=== PATIENT | female | born 1940 | race Caucasian/White ===

== ENCOUNTER 2017-10-19 19:00 | Emergency (ER) | payer OTHER ==
[~2017-10-19] VITALS: Ht 157.5 cm; Wt 82.5 kg
[~2017-10-19 19:00] MED LIST: ASPI81EC PO; CETYLOZ PO; CYAN100 PO; FLUT.05NI; HYDACE5 PO; IBUP600 PO; LORA10ER PO; SERT25 PO; SIMV5 PO
[2017-10-19 19:38] LABS: BASOPHILS ABSOLUTE AUTO 0.05 K/mm3 (0.00-0.23); BASOPHILS PERCENT AUTO 1 % (0-2); EOSINOPHILS ABSOLUTE AUTO 0.17 K/mm3 (0.00-0.68); EOSINOPHILS PERCENT AUTO 3 % (0-6); Hematocrit 40.2 % (33.0-51.0); Hemoglobin 13.1 g/dL (11.5-16.0); IMMATURE GRAN ABSOLUTE AUTO 0.02 K/mm3 (0.00-0.10); IMMATURE GRAN PERCENT AUTO 0 % (0-1); LYMPHOCYTES ABSOLUTE AUTO 1.55 K/mm3 (0.84-5.20); LYMPHOCYTES PERCENT AUTO 28 % (21-46); MONOCYTES ABSOLUTE AUTO 0.41 K/mm3 (0.16-1.47); MONOCYTES PERCENT AUTO 7 % (4-13); Mean Corpuscular HGB 29.7 pg (26.0-34.0); Mean Corpuscular HGB Conc 32.6 g/dL (31.5-36.5); Mean Corpuscular Volume 91 fL (80-100); Mean Platelet Volume 9.5 fL (9.1-12.4); NEUTROPHILS ABSOLUTE AUTO 3.32 K/mm3 (1.96-9.15); NEUTROPHILS PERCENT AUTO 60 % (41-73); Platelet Count 256 K/mm3 (150-400); RDW Coefficient Variation 12.4 % (11.7-14.2); RDW Standard Deviation 41.4 fL (35.1-46.3); Red Blood Cell Count 4.41 M/mm3 (3.80-5.20); White Blood Cell Count 5.52 K/mm3 (4.00-11.30)
[2017-10-19 19:58] LABS: Albumin, Blood 3.8 g/dL (3.4-5.0); Bilirubin, Total 0.3 mg/dL (0.1-1.0); Bun/Creatinine Ratio 11.3 (12.0-20.0); Calcium, Blood 9.5 mg/dL (8.5-10.1); Creatinine, Blood 0.98 mg/dL (0.40-1.00); Potassium, Blood 3.7 mmol/L (3.5-5.5); Total Protein, Blood 7.8 g/dL (6.4-8.2)
[2017-10-19 20:06] LABS: Source, Urine Clean Catch
[2017-10-19 20:14] LABS: Appearance, Urine Hazy (Clear); Bilirubin, Urine Neg (Neg); Blood, Urine 5+ (Neg); Color, Urine Yellow (P-Yellow); Glucose Qualitative, Urine Neg (Neg); Ketones, Urine Neg (Neg); Leukocyte Esterase, Urine 2+ (Neg); Nitrite, Urine Neg (Neg); Protein, Urine 2+ (Neg); Urobilinogen, Urine NORM (Normal)
[2017-10-19 20:32] LABS: Red Blood Cells, Urine TNTC /hpf (0-2); Squamous Epithelial Cells Not Seen /hpf (Few)
[2017-10-19 20:33] LABS: Bacteria Many /hpf
[2017-10-19] MEDS ORDERED: Zofran Odt8 MG SL (21:24)
[2017-10-19] MEDS ORDERED: Percocet 5-3251 EACH PO (21:24)
== END 2017-10-19 21:51 | disposition home or self-care (01) ==
LOC: ER 19:00
PROVIDERS: Emergency Medicine
DX: N28.89 Other specified disorders of kidney and ureter (principal); N13.30 Unspecified hydronephrosis
CPT/HCPCS: 36415; 74176; 80053; 81001; 83690; 85025; 87086; 96374; 96375; 99284; J1885; J2405; J3010

== ENCOUNTER → 2020-04-03 | Outpatient (CLI) | payer OTHER ==
[~2020-04-03] MED LIST changes: +Percocet 5-3251 EACH PO; +Zofran Odt8 MG SL
[2020-04-03 15:18] LABS: Source, Urine Clean Catch
[2020-04-03 19:06] LABS: Appearance, Urine Clear (Clear); Bilirubin, Urine Neg (Neg); Blood, Urine 2+ (Neg); Color, Urine Yellow (P-Yellow); Glucose Qualitative, Urine Neg (Neg); Ketones, Urine Neg (Neg); Leukocyte Esterase, Urine 1+ (Neg); Nitrite, Urine Neg (Neg); Protein, Urine 2+ (Neg); Urobilinogen, Urine NORM (Normal)
[2020-04-03 19:20] LABS: Mucus Light (0-Heavy)
[2020-04-03 19:21] LABS: Amorphous Light (0-Heavy); Bacteria Few /hpf; Calcium Oxalate Crystals Mod /hpf; Squamous Epithelial Cells Few /hpf (Few); Transitional Epithelial Cells Rare /hpf (0-Rare)
== END | disposition home or self-care (01) ==
LOC: LAB 15:12 → LAB SHORT 15:12
PROVIDERS: Internal Medicine
DX: R30.0 Dysuria (principal)
CPT/HCPCS: 81001; 87086

== ENCOUNTER → 2020-10-31 | Outpatient (CLI) | payer OTHER | LOC: LAB SHORT 21:12 | DX: L08.9 Local infection of the skin and subcutaneous tissue, unspecified (principal); D48.5 Neoplasm of uncertain behavior of skin | CPT/HCPCS: 87070; 87077; 87147; 87186; 87205 ==